=== PATIENT | female | born 1995 | race Caucasian/White ===

== ENCOUNTER 2024-11-01 23:31 | Emergency (ER) | payer BC ==
[~2024-11-01] VITALS: Ht 170.2 cm; Wt 65.5 kg
[2024-11-01 23:34] VITALS: O2SAT 100
[2024-11-02] MEDS: KETOROLAC 15MG/ML VIAL IM ONE (01:44)
[2024-11-02] MEDS: DEXAMETHASONE 10 MG/ML VIAL PO ONE (01:48)
[2024-11-02] MEDS ORDERED: NAPR-1176 MT (02:18)
[2024-11-02] MEDS: SODIUM CHLORIDE 0.9% 1,000 ML IV ONE (03:33)
[2024-11-02 04:51] VITALS: BP 109/60; PULSE 96; RESP 15; TEMP 36.9; O2SAT 100
== END 2024-11-02 04:57 | disposition home or self-care (01) ==
LOC: ER 23:31
DX: J02.0 Streptococcal pharyngitis (principal); Z79.1 Long term (current) use of non-steroidal anti-inflammatories (NSAID); Z79.52 Long term (current) use of systemic steroids
CPT/HCPCS: 99285; 96360; 96372; J1100; J1885; J7030; Z7610 ×4